=== PATIENT | female | born 1985 | race Two or more races ===

== ENCOUNTER 2019-06-04 15:30 | Inpatient (IN) | payer OTHER ==
[~2019-06-04] VITALS: Ht 165.1 cm; Wt 77.1 kg
[2019-06-20] MEDS ORDERED: SYNTHROID75 MCG PO (09:04)
[2019-06-20] MEDS ORDERED: PRENATABS RX T1 EACH PO (09:05)
[2019-06-20] MEDS ORDERED: ZYRTEC10 M3 PO (09:09)
== END 2019-06-22 15:06 | disposition home or self-care (01) | DRG 807 ==
LOC: OB/GYN 06-18 15:30 → LDR 06-20 08:54 → SURG-SUITE 06-20 14:51
PROVIDERS: ADMIT Obstetrics & Gynecology
PROC: 10E0XZZ Delivery of Products of Conception, External Approach (ICD-10-PCS; principal; 2019-06-20)
PROC: 0KQM0ZZ Repair Perineum Muscle, Open Approach (ICD-10-PCS; 2019-06-20)
PROC: 4A1HXCZ Monitoring of Products of Conception, Cardiac Rate, External Approach (ICD-10-PCS; 2019-06-20)
DX: O70.1 Second degree perineal laceration during delivery (principal); Z37.0 Single live birth; Z3A.40 40 weeks gestation of pregnancy

== ENCOUNTER 2019-09-20 13:14 | Outpatient (CLI) | payer OTHER ==
[~2019-09-20 13:14] MED LIST: PRENATABS RX T1 EACH PO; SYNTHROID75 MCG PO; ZYRTEC10 M3 PO
== END 2019-09-20 13:19 | disposition home or self-care (01) ==
LOC: SONOGRAMA 13:14 → MAMO-SONO 13:15 → SONOGRAMA 13:19
PROVIDERS: ATTEND Internal Medicine Endocrinology, Diabetes & Metabolism
DX: E04.1 Nontoxic single thyroid nodule (principal); R10.2 Pelvic and perineal pain; N92.6 Irregular menstruation, unspecified

== ENCOUNTER 2024-11-08 09:47 | Outpatient (CLI) | payer OTHER ==
[~2024-11-08 09:47] MED LIST changes: +ADULT LOW DOSE81 M1; +ADULT LOW DOSE81 M1 PO; +CHILDREN'S ASPI81 MG; +CLARITIN10 MG PO; +FUSION PLUS CA1 EACH PO; +IRON236 MG; +IRON236 MG PO; +IRON325 MG; +IRON325 MG PO; +NASAL MIST126 ML; +OBSTETRIX ONE1 EAC1; +PRENATAL TABLE1 EAC1; +PRENATAL TABLE1 EAC1 PO; +PRENATAL TABLE1 EAC4 PO; +SYNTHROID88 MCG; +SYNTHROID88 MCG PO
== END 2024-11-08 09:53 | disposition home or self-care (01) ==
LOC: SONOGRAMA 09:47
PROVIDERS: ATTEND Internal Medicine
DX: E04.2 Nontoxic multinodular goiter (principal)